=== PATIENT | male | born 1950 | race Caucasian/White ===

== ENCOUNTER → 2021-05-20 13:34 | Outpatient (BNVA) | payer MEDICARE, OTHER, SELFPAY | PROVIDERS: Referring Provider Internal Medicine; Visit Provider Nurse Practitioner Adult Health | DX: G56.03 Carpal tunnel syndrome, bilateral upper limbs (principal); G56.21 Lesion of ulnar nerve, right upper limb | CPT/HCPCS: 95911; 99203; 99204 ==